=== PATIENT | male | born 1975 | race Caucasian/White ===

== ENCOUNTER 2025-06-18 10:04 | Emergency (ER) | payer BC, SELFPAY ==
[2025-06-18 10:24] VITALS: BP 149/100
[2025-06-18 10:50] LABS: Hematocrit 49.5 % (39.0-52.0); Hemoglobin 15.6 g/dL (13.0-18.0); Mean Corp Hgb Conc. 31.5 g/dL (33.0-37.0); Mean Corpuscular Volume 82.8 fL (80.0-94.0); Nucleated Red Blood Cells % 0 % (-); Platelet Count 245 10^3/uL (130-400); Red Cell Dist. Width 17.2 % (11.5-14.5)
[2025-06-18 11:01] LABS: ALT (SGPT) 32 U/L (0-50); AST (SGOT) 37 U/L (17-59); Albumin 4.7 g/dl (3.5-5.0); Alkaline Phosphatase 49 U/L (38-126); Blood Urea Nitrogen 16 mg/dl (9-20); Calcium 9.0 mg/dl (8.4-10.2); Carbon Dioxide 29 mmol/L (22-30); Chloride 103 mmol/L (98-107); Glucose 95 mg/dl (70-99); Potassium 4.7 mmol/L (3.5-5.1); Sodium 137 mmol/L (135-145); Total Protein 7.6 g/dl (6.3-8.2); eGFR > 60.00
[2025-06-18 11:47] VITALS: BP 133/93
[2025-06-18 12:00] VITALS: BP 129/88
[2025-06-18 13:00] VITALS: BP 126/83
--- NOTE | 2025-06-18 13:32 | ED.GENMED ---
History of Present Illness
General
Chief Complaint: Blood Pressure Problem
Source: patient
Exam Limitations: none
Time Seen by Provider: 06/18/25 13:19
History of Present Illness
History of Present Illness:
50-year-old male presents for elevated blood pressure readings at home he then got worked up about his blood pressure he started to feel numbness around his face and his fingers. There is no vision change. No chest pain or shortness of breath. He
states he feels back to normal at this point. No other complaints at this time
Phy Exam
Physical Exam
Physical Exam:
General: Well-appearing male no acute respiratory distress
HEENT normal cephalic atraumatic
Pupils equal round reactive to light extraocular's are intact neck is supple
Heart: Regular rate and rhythm
Lungs: Clear no wheeze
Neurologic exam: Alert and oriented no facial asymmetry conversing appropriately no drift on exam finger-nose intact [id number] intact.
Skin is warm no rash
Course
Orders/Labs/Results
Orders:
Orders
06/18/25 10:28
CT Head W/o Iv Contrast Urgent
Comment:
Reason For Exam: hypertension with a headache
06/18/25 10:35
Complete Blood Count/With Diff Urgent
Comprehensive Metabolic Panel Urgent
Abnormal Lab Results
06/18/25
10:35
WBC 4.5 L 10^3/uL
(4.8-10.8)
MCH 26.1 L pg
(27.0-31.0)
MCHC 31.5 L g/dL
(33.0-37.0)
RDW 17.2 H %
(11.5-14.5)
Monocytes % 12.6 H %
(1.7-9.3)
06/18/25 10:35
06/18/25 10:35
Vital Signs
Initial and Last Documented VS:
Initial Vital Signs
Temp Pulse Resp BP Pulse Ox
97.7 F 82 17 149/100 99
06/18/25 10:24 06/18/25 10:24 06/18/25 10:24 06/18/25 10:24 06/18/25 10:24
Last Documented Vital Signs
Temp Pulse Resp BP Pulse Ox
97.7 F 59 15 126/83 97
06/18/25 10:24 06/18/25 13:00 06/18/25 13:00 06/18/25 13:00 06/18/25 13:00
MDM/Problems Addressed
Differential Diagnosis Includes:
Patient with elevated blood pressure readings at home and he started getting worked up about these and developed other symptoms. Blood pressure now 120s over 80s. All paresthesias of his face and hands have resolved. He denies a headache no
neurologic deficit. Labs through triage within normal limits. CT of the head was obtained through triage which is negative. Do not suspect acute stroke. No evidence of such on exam. Recommended follow-up with family doctor for blood pressure
check
*Pulse Oximetry
SaO2: 97
Oxygen Mode of Delivery: Room air
Patient hypoxic: no
*Critical Care Note
Total Time (30-74mins, 75-104mins- exclusive of procedures): Not Applicable
ED Attending Note
-
Portions of this chart may have been created with voice recognition software.� Occasional wrong word or��sound alike� substitutions may have occurred due to the inherent limitations of voice recognition software.
Discharge Plan
Departure
Patient Disposition: Home (Routine Discharge)
Date of Disposition: 06/18/25
Time of Disposition: 13:35
Patient with high blood pressure during this ER visit?: No
Discharge Problem:
Elevated blood pressure reading
Instructions: BLOOD PRESSURE
Referrals:
Angelo Nguyen MD [Family Provider, Family Practice]
Activity Restrictions/Additional Instructions:
Return here for worsening symptoms otherwise follow-up with your doctor.
Interventions
Interventions:
*Risk Screen - Suicide Last Done: 06/18/25 10:28
*General Assessment Last Done: 06/18/25 10:28
*Neglect/Abuse Screening Last Done: 06/18/25 10:28
*ED COVID-19 Vaccine History Last Done: 06/18/25 10:28
*ED Influenza Vaccine History Last Done: 06/18/25 10:28
ED- Cardiac Assessment Last Done: 06/18/25 12:15
ED- Neurological Assessment Last Done: 06/18/25 12:15
ED- Pulmonary Assessment Last Done: 06/18/25 12:16
Discharge Date and Time
Print Language: HONDURAN
== END 2025-06-18 13:46 | disposition home or self-care (01) ==
LOC: EMR 10:04
PROVIDERS: Physician Assistant; EMERGENCY PHYSICIAN Emergency Medicine; FAMILY PHYSICIAN Family Medicine
DX: R03.0 Elevated blood-pressure reading, without diagnosis of hypertension (principal); R20.2 Paresthesia of skin; R51.9 Headache, unspecified; R20.0 Anesthesia of skin; Z88.0 Allergy status to penicillin
CPT/HCPCS: 99284; 70450; 80053; 85025